=== PATIENT | male | born 1960 | race Caucasian/White ===

== ENCOUNTER 2020-04-05 18:07 | Emergency (ER) | payer OTHER ==
[~2020-04-05 18:07] MED LIST: AMLODIPINE BESY10 MG PO; ASPIRIN EC81 MG PO; ATORVASTATIN CA20 MG PO; BUPRENORPHIN-N1 EACH SL; CEPHALEXIN500 M1 PO; DOCUSATE SODIU100 MG PO; DOXYCYCLINE MO100 MG PO; FUROSEMIDE40 MG PO; GLUCOPHAGE1000 MG PO; HUMULIN R100 UNIT/1 INJ; HYDROXYZINE HCL25 MG PO; KEFLEX500 MG PO; LANTUS100 UNIT/1 SQ; LISINOPRIL-HCT1 EAC1 PO; MIRTAZAPINE45 MG PO; NORTRIPTYLINE H75 MG PO; NOVOLIN 70100 UNIT/1 SQ; OXCARBAZEPINE600 MG PO; PERCOCET 5-3251 EACH PO; POTASSIUM CHLO20 ME2 PO; REMERON45 M1 PO; TAMSULOSIN HCL0.4 MG PO; ZOFRAN 4 MG TAB4 MG PO
== END 2020-04-05 21:30 | disposition home or self-care (01) ==
LOC: ER1 18:07
DX: T85.638A Leakage of other specified internal prosthetic devices, implants and grafts, initial encounter (principal); I11.0 Hypertensive heart disease with heart failure; I50.9 Heart failure, unspecified; E11.9 Type 2 diabetes mellitus without complications; Y82.8 Other medical devices associated with adverse incidents; Z89.511 Acquired absence of right leg below knee
CPT/HCPCS: 99283

== ENCOUNTER 2020-04-07 22:57 | Emergency (ER) | payer OTHER | END 2020-04-08 01:49 | disposition home or self-care (01) | LOC: ER1 22:57 | DX: S80.811A Abrasion, right lower leg, initial encounter (principal); E11.9 Type 2 diabetes mellitus without complications; Z79.4 Long term (current) use of insulin; Z89.511 Acquired absence of right leg below knee; W19.XXXA Unspecified fall, initial encounter | CPT/HCPCS: 99282 ==

== ENCOUNTER → 2020-04-12 | Outpatient (CLI) | payer OTHER | LOC: WCC 13:00 | PROC: 0KBS0ZZ Excision of Right Lower Leg Muscle, Open Approach (ICD-10-PCS; principal; 2020-04-12) | DX: E11.622 Type 2 diabetes mellitus with other skin ulcer (principal); L97.813 Non-pressure chronic ulcer of other part of right lower leg with necrosis of muscle; E11.52 Type 2 diabetes mellitus with diabetic peripheral angiopathy with gangrene; I96 Gangrene, not elsewhere classified; I11.0 Hypertensive heart disease with heart failure; I50.22 Chronic systolic (congestive) heart failure; E11.610 Type 2 diabetes mellitus with diabetic neuropathic arthropathy; E11.40 Type 2 diabetes mellitus with diabetic neuropathy, unspecified; T81.31XD Disruption of external operation (surgical) wound, not elsewhere classified, subsequent encounter; Z79.4 Long term (current) use of insulin; Z79.899 Other long term (current) drug therapy; Z89.511 Acquired absence of right leg below knee; Y83.5 Amputation of limb(s) as the cause of abnormal reaction of the patient, or of later complication, without mention of misadventure at the time of the procedure | CPT/HCPCS: G0463 ==

== ENCOUNTER → 2020-04-19 | Outpatient (CLI) | payer OTHER | LOC: WCC 13:01 | PROC: 0KBW0ZZ Excision of Left Foot Muscle, Open Approach (ICD-10-PCS; principal; 2020-04-19) | PROC: 0KBS0ZZ Excision of Right Lower Leg Muscle, Open Approach (ICD-10-PCS; 2020-04-19) | DX: E11.621 Type 2 diabetes mellitus with foot ulcer (principal); L97.423 Non-pressure chronic ulcer of left heel and midfoot with necrosis of muscle; E11.622 Type 2 diabetes mellitus with other skin ulcer; L97.813 Non-pressure chronic ulcer of other part of right lower leg with necrosis of muscle; E11.52 Type 2 diabetes mellitus with diabetic peripheral angiopathy with gangrene; I96 Gangrene, not elsewhere classified; E11.610 Type 2 diabetes mellitus with diabetic neuropathic arthropathy; I11.0 Hypertensive heart disease with heart failure; I50.22 Chronic systolic (congestive) heart failure; E66.01 Morbid (severe) obesity due to excess calories; B18.2 Chronic viral hepatitis C; Z89.511 Acquired absence of right leg below knee; Z79.4 Long term (current) use of insulin; Z79.2 Long term (current) use of antibiotics; Z79.899 Other long term (current) drug therapy; Z68.33 Body mass index [BMI] 33.0-33.9, adult | CPT/HCPCS: 87070; 87077; 87186; 87205 ==

== ENCOUNTER → 2020-04-27 | Outpatient (CLI) | payer OTHER | LOC: WCC 11:00 | PROC: 0KBT0ZZ Excision of Left Lower Leg Muscle, Open Approach (ICD-10-PCS; principal; 2020-04-27) | PROC: 0KBS0ZZ Excision of Right Lower Leg Muscle, Open Approach (ICD-10-PCS; 2020-04-27) | DX: E11.621 Type 2 diabetes mellitus with foot ulcer (principal); L97.423 Non-pressure chronic ulcer of left heel and midfoot with necrosis of muscle; T87.81 Dehiscence of amputation stump; T87.53 Necrosis of amputation stump, right lower extremity; E11.52 Type 2 diabetes mellitus with diabetic peripheral angiopathy with gangrene; I96 Gangrene, not elsewhere classified; B18.2 Chronic viral hepatitis C; B96.1 Klebsiella pneumoniae [K. pneumoniae] as the cause of diseases classified elsewhere; B95.62 Methicillin resistant Staphylococcus aureus infection as the cause of diseases classified elsewhere; I11.0 Hypertensive heart disease with heart failure; I50.22 Chronic systolic (congestive) heart failure; E11.610 Type 2 diabetes mellitus with diabetic neuropathic arthropathy; E66.01 Morbid (severe) obesity due to excess calories; Z68.33 Body mass index [BMI] 33.0-33.9, adult; Z89.511 Acquired absence of right leg below knee; Z79.4 Long term (current) use of insulin; Z79.2 Long term (current) use of antibiotics; Z79.899 Other long term (current) drug therapy; Y83.5 Amputation of limb(s) as the cause of abnormal reaction of the patient, or of later complication, without mention of misadventure at the time of the procedure ==

== ENCOUNTER → 2020-05-03 | Outpatient (CLI) | payer OTHER | LOC: WCC 12:55 | DX: E11.610 Type 2 diabetes mellitus with diabetic neuropathic arthropathy (principal); L97.525 Non-pressure chronic ulcer of other part of left foot with muscle involvement without evidence of necrosis; I11.0 Hypertensive heart disease with heart failure; I50.22 Chronic systolic (congestive) heart failure; E66.01 Morbid (severe) obesity due to excess calories; B18.2 Chronic viral hepatitis C; B96.1 Klebsiella pneumoniae [K. pneumoniae] as the cause of diseases classified elsewhere; B95.62 Methicillin resistant Staphylococcus aureus infection as the cause of diseases classified elsewhere; Z68.33 Body mass index [BMI] 33.0-33.9, adult; Z79.4 Long term (current) use of insulin; Z79.899 Other long term (current) drug therapy; Z89.511 Acquired absence of right leg below knee ==

== ENCOUNTER → 2020-05-10 | Outpatient (CLI) | payer OTHER | LOC: WCC 13:00 | PROC: 0KBW0ZZ Excision of Left Foot Muscle, Open Approach (ICD-10-PCS; principal; 2020-05-10) | PROC: 0KBS0ZZ Excision of Right Lower Leg Muscle, Open Approach (ICD-10-PCS; 2020-05-10) | DX: T87.81 Dehiscence of amputation stump (principal); T87.53 Necrosis of amputation stump, right lower extremity; E11.621 Type 2 diabetes mellitus with foot ulcer; L97.423 Non-pressure chronic ulcer of left heel and midfoot with necrosis of muscle; E11.52 Type 2 diabetes mellitus with diabetic peripheral angiopathy with gangrene; I96 Gangrene, not elsewhere classified; I11.0 Hypertensive heart disease with heart failure; I50.22 Chronic systolic (congestive) heart failure; E11.610 Type 2 diabetes mellitus with diabetic neuropathic arthropathy; B95.62 Methicillin resistant Staphylococcus aureus infection as the cause of diseases classified elsewhere; B18.2 Chronic viral hepatitis C; K59.00 Constipation, unspecified; E66.01 Morbid (severe) obesity due to excess calories; Z68.33 Body mass index [BMI] 33.0-33.9, adult; Z79.4 Long term (current) use of insulin; Z79.2 Long term (current) use of antibiotics; Z79.899 Other long term (current) drug therapy; Z89.511 Acquired absence of right leg below knee; Y83.5 Amputation of limb(s) as the cause of abnormal reaction of the patient, or of later complication, without mention of misadventure at the time of the procedure ==

== ENCOUNTER → 2020-05-17 | Outpatient (CLI) | payer OTHER | LOC: EXRD 04-24 13:45 | DX: E11.621 Type 2 diabetes mellitus with foot ulcer (principal); L97.525 Non-pressure chronic ulcer of other part of left foot with muscle involvement without evidence of necrosis; I50.22 Chronic systolic (congestive) heart failure; E11.610 Type 2 diabetes mellitus with diabetic neuropathic arthropathy; E66.01 Morbid (severe) obesity due to excess calories; I10 Essential (primary) hypertension; B18.2 Chronic viral hepatitis C; B96.1 Klebsiella pneumoniae [K. pneumoniae] as the cause of diseases classified elsewhere; B95.62 Methicillin resistant Staphylococcus aureus infection as the cause of diseases classified elsewhere; Z89.511 Acquired absence of right leg below knee; Z79.4 Long term (current) use of insulin; R59.0 Localized enlarged lymph nodes | CPT/HCPCS: 93925 ==

== ENCOUNTER → 2020-05-17 | Outpatient (CLI) | payer OTHER | LOC: WCC 15:00 | PROC: 0KBW0ZZ Excision of Left Foot Muscle, Open Approach (ICD-10-PCS; principal; 2020-05-17) | PROC: 0KBS0ZZ Excision of Right Lower Leg Muscle, Open Approach (ICD-10-PCS; 2020-05-17) | DX: T81.31XA Disruption of external operation (surgical) wound, not elsewhere classified, initial encounter (principal); E11.621 Type 2 diabetes mellitus with foot ulcer; L97.423 Non-pressure chronic ulcer of left heel and midfoot with necrosis of muscle; E11.52 Type 2 diabetes mellitus with diabetic peripheral angiopathy with gangrene; I96 Gangrene, not elsewhere classified; I11.0 Hypertensive heart disease with heart failure; I50.22 Chronic systolic (congestive) heart failure; E11.610 Type 2 diabetes mellitus with diabetic neuropathic arthropathy; B18.2 Chronic viral hepatitis C; B96.1 Klebsiella pneumoniae [K. pneumoniae] as the cause of diseases classified elsewhere; B95.62 Methicillin resistant Staphylococcus aureus infection as the cause of diseases classified elsewhere; E66.01 Morbid (severe) obesity due to excess calories; Z68.33 Body mass index [BMI] 33.0-33.9, adult; Z79.4 Long term (current) use of insulin; Z79.82 Long term (current) use of aspirin; Z79.899 Other long term (current) drug therapy; Z89.511 Acquired absence of right leg below knee; Y83.8 Other surgical procedures as the cause of abnormal reaction of the patient, or of later complication, without mention of misadventure at the time of the procedure ==

== ENCOUNTER → 2020-05-31 | Outpatient (CLI) | payer OTHER | LOC: WCC 15:30 | PROC: 0JBN0ZZ Excision of Right Lower Leg Subcutaneous Tissue and Fascia, Open Approach (ICD-10-PCS; principal; 2020-05-31) | PROC: 0JBR0ZZ Excision of Left Foot Subcutaneous Tissue and Fascia, Open Approach (ICD-10-PCS; 2020-05-31) | DX: T81.31XA Disruption of external operation (surgical) wound, not elsewhere classified, initial encounter (principal); E11.621 Type 2 diabetes mellitus with foot ulcer; L97.423 Non-pressure chronic ulcer of left heel and midfoot with necrosis of muscle; E11.52 Type 2 diabetes mellitus with diabetic peripheral angiopathy with gangrene; I96 Gangrene, not elsewhere classified; I11.0 Hypertensive heart disease with heart failure; I50.22 Chronic systolic (congestive) heart failure; E11.610 Type 2 diabetes mellitus with diabetic neuropathic arthropathy; E66.01 Morbid (severe) obesity due to excess calories; B18.2 Chronic viral hepatitis C; B96.1 Klebsiella pneumoniae [K. pneumoniae] as the cause of diseases classified elsewhere; B95.62 Methicillin resistant Staphylococcus aureus infection as the cause of diseases classified elsewhere; Z79.2 Long term (current) use of antibiotics; Z79.4 Long term (current) use of insulin; Z79.899 Other long term (current) drug therapy; Z89.511 Acquired absence of right leg below knee; Z68.33 Body mass index [BMI] 33.0-33.9, adult; Y83.8 Other surgical procedures as the cause of abnormal reaction of the patient, or of later complication, without mention of misadventure at the time of the procedure ==

== ENCOUNTER → 2020-06-07 | Outpatient (CLI) | payer OTHER | LOC: WCC 14:48 | PROC: 0KBW0ZZ Excision of Left Foot Muscle, Open Approach (ICD-10-PCS; principal; 2020-06-07) | PROC: 0KBS0ZZ Excision of Right Lower Leg Muscle, Open Approach (ICD-10-PCS; 2020-06-07) | DX: E11.622 Type 2 diabetes mellitus with other skin ulcer (principal); L97.812 Non-pressure chronic ulcer of other part of right lower leg with fat layer exposed; E11.621 Type 2 diabetes mellitus with foot ulcer; L97.423 Non-pressure chronic ulcer of left heel and midfoot with necrosis of muscle; E11.52 Type 2 diabetes mellitus with diabetic peripheral angiopathy with gangrene; I96 Gangrene, not elsewhere classified; I11.0 Hypertensive heart disease with heart failure; I50.22 Chronic systolic (congestive) heart failure; E11.610 Type 2 diabetes mellitus with diabetic neuropathic arthropathy; B18.2 Chronic viral hepatitis C; B96.1 Klebsiella pneumoniae [K. pneumoniae] as the cause of diseases classified elsewhere; B95.62 Methicillin resistant Staphylococcus aureus infection as the cause of diseases classified elsewhere; E66.01 Morbid (severe) obesity due to excess calories; Z68.33 Body mass index [BMI] 33.0-33.9, adult; Z79.4 Long term (current) use of insulin; Z79.2 Long term (current) use of antibiotics; Z79.899 Other long term (current) drug therapy ==

== ENCOUNTER → 2020-06-14 | Outpatient (CLI) | payer OTHER | LOC: WCC 15:30 | PROC: 0KBS0ZZ Excision of Right Lower Leg Muscle, Open Approach (ICD-10-PCS; principal; 2020-06-14) | PROC: 0KBW0ZZ Excision of Left Foot Muscle, Open Approach (ICD-10-PCS; 2020-06-14) | DX: T81.31XA Disruption of external operation (surgical) wound, not elsewhere classified, initial encounter (principal); E11.621 Type 2 diabetes mellitus with foot ulcer; L97.423 Non-pressure chronic ulcer of left heel and midfoot with necrosis of muscle; E11.52 Type 2 diabetes mellitus with diabetic peripheral angiopathy with gangrene; I96 Gangrene, not elsewhere classified; B18.2 Chronic viral hepatitis C; B96.1 Klebsiella pneumoniae [K. pneumoniae] as the cause of diseases classified elsewhere; B95.62 Methicillin resistant Staphylococcus aureus infection as the cause of diseases classified elsewhere; I11.0 Hypertensive heart disease with heart failure; I50.22 Chronic systolic (congestive) heart failure; E11.610 Type 2 diabetes mellitus with diabetic neuropathic arthropathy; E66.01 Morbid (severe) obesity due to excess calories; Z68.33 Body mass index [BMI] 33.0-33.9, adult; Z79.4 Long term (current) use of insulin; Z79.2 Long term (current) use of antibiotics; Z79.899 Other long term (current) drug therapy; Z89.511 Acquired absence of right leg below knee; Y83.8 Other surgical procedures as the cause of abnormal reaction of the patient, or of later complication, without mention of misadventure at the time of the procedure ==

== ENCOUNTER → 2020-06-21 | Outpatient (CLI) | payer OTHER | LOC: WCC 12:11 | PROC: 0KBS0ZZ Excision of Right Lower Leg Muscle, Open Approach (ICD-10-PCS; principal; 2020-06-21) | PROC: 0KBW0ZZ Excision of Left Foot Muscle, Open Approach (ICD-10-PCS; 2020-06-21) | DX: T81.31XA Disruption of external operation (surgical) wound, not elsewhere classified, initial encounter (principal); E11.621 Type 2 diabetes mellitus with foot ulcer; L97.423 Non-pressure chronic ulcer of left heel and midfoot with necrosis of muscle; I96 Gangrene, not elsewhere classified; E11.52 Type 2 diabetes mellitus with diabetic peripheral angiopathy with gangrene; I11.0 Hypertensive heart disease with heart failure; I50.22 Chronic systolic (congestive) heart failure; E11.610 Type 2 diabetes mellitus with diabetic neuropathic arthropathy; B96.1 Klebsiella pneumoniae [K. pneumoniae] as the cause of diseases classified elsewhere; B95.62 Methicillin resistant Staphylococcus aureus infection as the cause of diseases classified elsewhere; E66.01 Morbid (severe) obesity due to excess calories; Z68.33 Body mass index [BMI] 33.0-33.9, adult; Z79.4 Long term (current) use of insulin; Z79.2 Long term (current) use of antibiotics; Z79.899 Other long term (current) drug therapy; Z89.511 Acquired absence of right leg below knee; Y83.8 Other surgical procedures as the cause of abnormal reaction of the patient, or of later complication, without mention of misadventure at the time of the procedure | CPT/HCPCS: 87070; 87077; 87186; 87205 ==

== ENCOUNTER → 2020-06-27 | Outpatient (CLI) | payer OTHER | LOC: WCC 09:30 | DX: E11.621 Type 2 diabetes mellitus with foot ulcer (principal); L97.425 Non-pressure chronic ulcer of left heel and midfoot with muscle involvement without evidence of necrosis; T87.89 Other complications of amputation stump; E11.610 Type 2 diabetes mellitus with diabetic neuropathic arthropathy; I11.0 Hypertensive heart disease with heart failure; I50.22 Chronic systolic (congestive) heart failure; B18.2 Chronic viral hepatitis C; B96.29 Other Escherichia coli [E. coli] as the cause of diseases classified elsewhere; E66.01 Morbid (severe) obesity due to excess calories; Z89.511 Acquired absence of right leg below knee; Z68.33 Body mass index [BMI] 33.0-33.9, adult; Z79.4 Long term (current) use of insulin; Z79.2 Long term (current) use of antibiotics; Z79.899 Other long term (current) drug therapy ==

== ENCOUNTER → 2020-07-05 | Outpatient (CLI) | payer OTHER | LOC: WCC 15:16 | DX: E11.40 Type 2 diabetes mellitus with diabetic neuropathy, unspecified (principal); L97.525 Non-pressure chronic ulcer of other part of left foot with muscle involvement without evidence of necrosis; E11.618 Type 2 diabetes mellitus with other diabetic arthropathy; I50.22 Chronic systolic (congestive) heart failure; Z79.4 Long term (current) use of insulin; E66.01 Morbid (severe) obesity due to excess calories; B18.2 Chronic viral hepatitis C; B96.29 Other Escherichia coli [E. coli] as the cause of diseases classified elsewhere; Z68.33 Body mass index [BMI] 33.0-33.9, adult ==

== ENCOUNTER → 2020-07-18 | Outpatient (CLI) | payer OTHER | LOC: WCC 15:00 | DX: E11.621 Type 2 diabetes mellitus with foot ulcer (principal); L97.422 Non-pressure chronic ulcer of left heel and midfoot with fat layer exposed; T81.89XA Other complications of procedures, not elsewhere classified, initial encounter; I11.0 Hypertensive heart disease with heart failure; I50.9 Heart failure, unspecified; E66.01 Morbid (severe) obesity due to excess calories; Z79.4 Long term (current) use of insulin; Z89.511 Acquired absence of right leg below knee ==

== ENCOUNTER → 2020-07-25 | Outpatient (CLI) | payer OTHER | LOC: WCC 14:59 | DX: E11.621 Type 2 diabetes mellitus with foot ulcer (principal); L97.425 Non-pressure chronic ulcer of left heel and midfoot with muscle involvement without evidence of necrosis; L97.525 Non-pressure chronic ulcer of other part of left foot with muscle involvement without evidence of necrosis; T87.81 Dehiscence of amputation stump; E11.610 Type 2 diabetes mellitus with diabetic neuropathic arthropathy; I11.0 Hypertensive heart disease with heart failure; I50.22 Chronic systolic (congestive) heart failure; E66.01 Morbid (severe) obesity due to excess calories; B18.2 Chronic viral hepatitis C; B96.29 Other Escherichia coli [E. coli] as the cause of diseases classified elsewhere; Z68.33 Body mass index [BMI] 33.0-33.9, adult; Z89.511 Acquired absence of right leg below knee; Z79.2 Long term (current) use of antibiotics; Z79.4 Long term (current) use of insulin; Z79.899 Other long term (current) drug therapy ==

== ENCOUNTER → 2020-08-01 | Outpatient (CLI) | payer OTHER | LOC: WCC 14:30 | DX: E11.610 Type 2 diabetes mellitus with diabetic neuropathic arthropathy (principal); L97.525 Non-pressure chronic ulcer of other part of left foot with muscle involvement without evidence of necrosis; I50.22 Chronic systolic (congestive) heart failure; E66.01 Morbid (severe) obesity due to excess calories; I10 Essential (primary) hypertension; B18.2 Chronic viral hepatitis C; B96.29 Other Escherichia coli [E. coli] as the cause of diseases classified elsewhere; Z79.4 Long term (current) use of insulin ==

== ENCOUNTER → 2020-08-08 | Outpatient (CLI) | payer OTHER | LOC: WCC 14:45 | DX: E11.621 Type 2 diabetes mellitus with foot ulcer (principal); L97.425 Non-pressure chronic ulcer of left heel and midfoot with muscle involvement without evidence of necrosis; L97.522 Non-pressure chronic ulcer of other part of left foot with fat layer exposed; T87.81 Dehiscence of amputation stump; I11.0 Hypertensive heart disease with heart failure; I50.22 Chronic systolic (congestive) heart failure; E11.610 Type 2 diabetes mellitus with diabetic neuropathic arthropathy; E11.51 Type 2 diabetes mellitus with diabetic peripheral angiopathy without gangrene; B18.2 Chronic viral hepatitis C; E66.01 Morbid (severe) obesity due to excess calories; B96.29 Other Escherichia coli [E. coli] as the cause of diseases classified elsewhere; Z68.33 Body mass index [BMI] 33.0-33.9, adult; Z89.511 Acquired absence of right leg below knee; Z79.4 Long term (current) use of insulin; Z79.899 Other long term (current) drug therapy ==

== ENCOUNTER → 2020-08-15 | Outpatient (CLI) | payer OTHER | LOC: WCC 14:45 | DX: E11.621 Type 2 diabetes mellitus with foot ulcer (principal); L97.422 Non-pressure chronic ulcer of left heel and midfoot with fat layer exposed; L97.522 Non-pressure chronic ulcer of other part of left foot with fat layer exposed; S81.801A Unspecified open wound, right lower leg, initial encounter; E11.51 Type 2 diabetes mellitus with diabetic peripheral angiopathy without gangrene; I11.0 Hypertensive heart disease with heart failure; I50.22 Chronic systolic (congestive) heart failure; E11.610 Type 2 diabetes mellitus with diabetic neuropathic arthropathy; E66.01 Morbid (severe) obesity due to excess calories; B18.2 Chronic viral hepatitis C; B96.29 Other Escherichia coli [E. coli] as the cause of diseases classified elsewhere; Z68.33 Body mass index [BMI] 33.0-33.9, adult; Z89.511 Acquired absence of right leg below knee; Z79.4 Long term (current) use of insulin; Z79.899 Other long term (current) drug therapy; W05.0XXA Fall from non-moving wheelchair, initial encounter | CPT/HCPCS: 87070; 87077; 87186; 87205 ==

== ENCOUNTER → 2020-08-23 | Outpatient (CLI) | payer OTHER ==
[~2020-08-23] VITALS: Ht 172.7 cm; Wt 99.8 kg
== END ==
LOC: OPSV 07:00
DX: L97.525 Non-pressure chronic ulcer of other part of left foot with muscle involvement without evidence of necrosis (principal); T87.43 Infection of amputation stump, right lower extremity; B95.62 Methicillin resistant Staphylococcus aureus infection as the cause of diseases classified elsewhere; B96.20 Unspecified Escherichia coli [E. coli] as the cause of diseases classified elsewhere; B95.1 Streptococcus, group B, as the cause of diseases classified elsewhere
CPT/HCPCS: 96365; 97597; 97598; J0875; J7060

== ENCOUNTER → 2020-08-31 | Outpatient (CLI) | payer OTHER | LOC: WCC 12:00 | DX: E11.621 Type 2 diabetes mellitus with foot ulcer (principal); L97.422 Non-pressure chronic ulcer of left heel and midfoot with fat layer exposed; L97.522 Non-pressure chronic ulcer of other part of left foot with fat layer exposed; S81.801A Unspecified open wound, right lower leg, initial encounter; I11.0 Hypertensive heart disease with heart failure; I50.22 Chronic systolic (congestive) heart failure; E11.610 Type 2 diabetes mellitus with diabetic neuropathic arthropathy; E66.01 Morbid (severe) obesity due to excess calories; B18.2 Chronic viral hepatitis C; B96.29 Other Escherichia coli [E. coli] as the cause of diseases classified elsewhere; Z68.33 Body mass index [BMI] 33.0-33.9, adult; Z89.511 Acquired absence of right leg below knee; Z79.4 Long term (current) use of insulin; Z79.2 Long term (current) use of antibiotics; Z79.899 Other long term (current) drug therapy; X58.XXXA Exposure to other specified factors, initial encounter ==

== ENCOUNTER → 2020-09-06 | Outpatient (CLI) | payer OTHER | LOC: WCC 14:15 | DX: E11.621 Type 2 diabetes mellitus with foot ulcer (principal); L97.425 Non-pressure chronic ulcer of left heel and midfoot with muscle involvement without evidence of necrosis; L97.521 Non-pressure chronic ulcer of other part of left foot limited to breakdown of skin; T87.81 Dehiscence of amputation stump; I11.0 Hypertensive heart disease with heart failure; I50.22 Chronic systolic (congestive) heart failure; E11.610 Type 2 diabetes mellitus with diabetic neuropathic arthropathy; E66.01 Morbid (severe) obesity due to excess calories; B18.2 Chronic viral hepatitis C; B96.29 Other Escherichia coli [E. coli] as the cause of diseases classified elsewhere; Z68.33 Body mass index [BMI] 33.0-33.9, adult; Z89.511 Acquired absence of right leg below knee; Z79.4 Long term (current) use of insulin; Z79.2 Long term (current) use of antibiotics; Z79.899 Other long term (current) drug therapy ==

== ENCOUNTER → 2020-09-13 | Outpatient (CLI) | payer OTHER ==
[~2020-09-13] MED LIST changes: +CEFTRIAXON1 GM/50 ML IV; +COLISTIMETHATE150 MG TOP; +GENTAMICIN SUL3.5 GM TOP; +HUMALOG100 UNIT/3 SC; +LANTUS SOL100 UNIT/1 SQ; +LIPITOR TAB 2020 MG PO; +REMERON 15 MG T15 MG PO
== END ==
LOC: WCC 14:00
PROC: 0KBW0ZZ Excision of Left Foot Muscle, Open Approach (ICD-10-PCS; principal; 2020-09-13)
PROC: 0JBN0ZZ Excision of Right Lower Leg Subcutaneous Tissue and Fascia, Open Approach (ICD-10-PCS; 2020-09-13)
DX: T87.81 Dehiscence of amputation stump (principal); T87.53 Necrosis of amputation stump, right lower extremity; E11.621 Type 2 diabetes mellitus with foot ulcer; L97.423 Non-pressure chronic ulcer of left heel and midfoot with necrosis of muscle; L97.522 Non-pressure chronic ulcer of other part of left foot with fat layer exposed; E11.52 Type 2 diabetes mellitus with diabetic peripheral angiopathy with gangrene; I96 Gangrene, not elsewhere classified; I11.0 Hypertensive heart disease with heart failure; I50.22 Chronic systolic (congestive) heart failure; E11.610 Type 2 diabetes mellitus with diabetic neuropathic arthropathy; B96.20 Unspecified Escherichia coli [E. coli] as the cause of diseases classified elsewhere; B18.2 Chronic viral hepatitis C; E66.01 Morbid (severe) obesity due to excess calories; Z68.33 Body mass index [BMI] 33.0-33.9, adult; Z79.4 Long term (current) use of insulin; Z89.511 Acquired absence of right leg below knee; Y83.5 Amputation of limb(s) as the cause of abnormal reaction of the patient, or of later complication, without mention of misadventure at the time of the procedure; Z79.899 Other long term (current) drug therapy

== ENCOUNTER 2020-09-21 21:55 | Emergency (ER) | payer OTHER ==
[~2020-09-21 21:55] MED LIST changes: -CEFTRIAXON1 GM/50 ML IV; -COLISTIMETHATE150 MG TOP; -GENTAMICIN SUL3.5 GM TOP; -HUMALOG100 UNIT/3 SC; -LANTUS SOL100 UNIT/1 SQ; -LIPITOR TAB 2020 MG PO; -REMERON 15 MG T15 MG PO
[2020-09-21 22:35] LABS: HEMOGLOBIN 17.9 gm/dl (14.0-17.5); RED BLOOD COUNT 5.65 M/UL (4.20-5.50)
[2020-09-21 23:03] LABS: BUN/CREATININE RATIO 34 (0-10)
[2020-11-27] MEDS ORDERED: COLISTIMETHATE150 MG TOP (12:54)
== END 2020-09-22 04:45 | disposition short-term general hospital (02) ==
LOC: ER1 21:55
PROVIDERS: Emergency Medicine
DX: I63.9 Cerebral infarction, unspecified (principal); R29.701 NIHSS score 1; E11.9 Type 2 diabetes mellitus without complications; Z20.822 Contact with and (suspected) exposure to COVID-19
CPT/HCPCS: 70450; 71045; 80053; 81001; 82009; 82962; 83605; 83735; 84100; 85025; 87040; 87086; 93005; 96372; 99285; U0002

== ENCOUNTER → 2020-10-11 | Outpatient (CLI) | payer OTHER ==
[~2020-10-11] MED LIST changes: +CEFTRIAXON1 GM/50 ML IV; +COLISTIMETHATE150 MG TOP; +GENTAMICIN SUL3.5 GM TOP; +HUMALOG100 UNIT/3 SC; +LANTUS SOL100 UNIT/1 SQ; +LIPITOR TAB 2020 MG PO; +REMERON 15 MG T15 MG PO
== END ==
LOC: WCC 09:36
PROC: 0JBR0ZZ Excision of Left Foot Subcutaneous Tissue and Fascia, Open Approach (ICD-10-PCS; principal; 2020-10-11)
DX: E11.621 Type 2 diabetes mellitus with foot ulcer (principal); L97.425 Non-pressure chronic ulcer of left heel and midfoot with muscle involvement without evidence of necrosis; L97.522 Non-pressure chronic ulcer of other part of left foot with fat layer exposed; E11.610 Type 2 diabetes mellitus with diabetic neuropathic arthropathy; T87.81 Dehiscence of amputation stump; T87.54 Necrosis of amputation stump, left lower extremity; I11.0 Hypertensive heart disease with heart failure; I50.22 Chronic systolic (congestive) heart failure; B18.2 Chronic viral hepatitis C; E66.01 Morbid (severe) obesity due to excess calories; Z68.33 Body mass index [BMI] 33.0-33.9, adult; Z79.4 Long term (current) use of insulin; Z79.899 Other long term (current) drug therapy; Y83.5 Amputation of limb(s) as the cause of abnormal reaction of the patient, or of later complication, without mention of misadventure at the time of the procedure; Z89.511 Acquired absence of right leg below knee
CPT/HCPCS: 97597

== ENCOUNTER → 2020-10-15 | Outpatient (CLI) | payer OTHER | LOC: WCC 13:45 | DX: E11.621 Type 2 diabetes mellitus with foot ulcer (principal); L97.425 Non-pressure chronic ulcer of left heel and midfoot with muscle involvement without evidence of necrosis; L97.522 Non-pressure chronic ulcer of other part of left foot with fat layer exposed; T87.81 Dehiscence of amputation stump; I11.0 Hypertensive heart disease with heart failure; I50.22 Chronic systolic (congestive) heart failure; E11.610 Type 2 diabetes mellitus with diabetic neuropathic arthropathy; E66.01 Morbid (severe) obesity due to excess calories; B18.2 Chronic viral hepatitis C; Z87.891 Personal history of nicotine dependence; Z89.511 Acquired absence of right leg below knee; Z68.33 Body mass index [BMI] 33.0-33.9, adult; Z79.4 Long term (current) use of insulin; Z79.899 Other long term (current) drug therapy | CPT/HCPCS: 97597 ==

== ENCOUNTER → 2020-10-22 | Outpatient (CLI) | payer OTHER | LOC: WCC 13:45 | DX: E11.621 Type 2 diabetes mellitus with foot ulcer (principal); L97.525 Non-pressure chronic ulcer of other part of left foot with muscle involvement without evidence of necrosis; T87.81 Dehiscence of amputation stump; I11.0 Hypertensive heart disease with heart failure; I50.22 Chronic systolic (congestive) heart failure; E11.610 Type 2 diabetes mellitus with diabetic neuropathic arthropathy; E11.51 Type 2 diabetes mellitus with diabetic peripheral angiopathy without gangrene; E11.40 Type 2 diabetes mellitus with diabetic neuropathy, unspecified; E66.01 Morbid (severe) obesity due to excess calories; B18.2 Chronic viral hepatitis C; Z89.511 Acquired absence of right leg below knee; Z79.4 Long term (current) use of insulin; Z79.899 Other long term (current) drug therapy ==

== ENCOUNTER → 2020-11-01 | Outpatient (CLI) | payer OTHER ==
[~2020-11-01] MED LIST changes: -CEFTRIAXON1 GM/50 ML IV; -COLISTIMETHATE150 MG TOP; -GENTAMICIN SUL3.5 GM TOP; -HUMALOG100 UNIT/3 SC; -LANTUS SOL100 UNIT/1 SQ; -LIPITOR TAB 2020 MG PO; -REMERON 15 MG T15 MG PO
== END ==
LOC: WCC 14:53
PROC: 0JBR0ZZ Excision of Left Foot Subcutaneous Tissue and Fascia, Open Approach (ICD-10-PCS; principal; 2020-11-01)
PROC: 0KBS0ZZ Excision of Right Lower Leg Muscle, Open Approach (ICD-10-PCS; principal; 2020-11-01)
DX: T87.81 Dehiscence of amputation stump (principal); T87.53 Necrosis of amputation stump, right lower extremity; E11.621 Type 2 diabetes mellitus with foot ulcer; L97.425 Non-pressure chronic ulcer of left heel and midfoot with muscle involvement without evidence of necrosis; E11.52 Type 2 diabetes mellitus with diabetic peripheral angiopathy with gangrene; I96 Gangrene, not elsewhere classified; I11.0 Hypertensive heart disease with heart failure; I50.22 Chronic systolic (congestive) heart failure; E11.610 Type 2 diabetes mellitus with diabetic neuropathic arthropathy; B18.2 Chronic viral hepatitis C; E66.01 Morbid (severe) obesity due to excess calories; Z68.33 Body mass index [BMI] 33.0-33.9, adult; Z79.4 Long term (current) use of insulin; Z79.2 Long term (current) use of antibiotics; Z79.899 Other long term (current) drug therapy; Z89.511 Acquired absence of right leg below knee; Y83.5 Amputation of limb(s) as the cause of abnormal reaction of the patient, or of later complication, without mention of misadventure at the time of the procedure
CPT/HCPCS: 87070; 87077; 87186; 87205

== ENCOUNTER → 2020-11-08 | Outpatient (CLI) | payer OTHER | LOC: WCC 15:15 | PROC: 0KBW0ZZ Excision of Left Foot Muscle, Open Approach (ICD-10-PCS; principal; 2020-11-08) | PROC: 0KBV0ZZ Excision of Right Foot Muscle, Open Approach (ICD-10-PCS; 2020-11-08) | DX: E11.621 Type 2 diabetes mellitus with foot ulcer (principal); L97.522 Non-pressure chronic ulcer of other part of left foot with fat layer exposed; L97.423 Non-pressure chronic ulcer of left heel and midfoot with necrosis of muscle; E11.51 Type 2 diabetes mellitus with diabetic peripheral angiopathy without gangrene; T87.81 Dehiscence of amputation stump; E11.40 Type 2 diabetes mellitus with diabetic neuropathy, unspecified; I11.0 Hypertensive heart disease with heart failure; I50.22 Chronic systolic (congestive) heart failure; E11.610 Type 2 diabetes mellitus with diabetic neuropathic arthropathy; E66.01 Morbid (severe) obesity due to excess calories; Z68.33 Body mass index [BMI] 33.0-33.9, adult; Z89.431 Acquired absence of right foot; Z79.2 Long term (current) use of antibiotics; Z79.4 Long term (current) use of insulin; Z79.899 Other long term (current) drug therapy; Y83.5 Amputation of limb(s) as the cause of abnormal reaction of the patient, or of later complication, without mention of misadventure at the time of the procedure ==

== ENCOUNTER → 2020-11-22 | Outpatient (CLI) | payer OTHER | LOC: WCC 15:00 | DX: E11.621 Type 2 diabetes mellitus with foot ulcer (principal); E11.622 Type 2 diabetes mellitus with other skin ulcer; L97.425 Non-pressure chronic ulcer of left heel and midfoot with muscle involvement without evidence of necrosis; L97.525 Non-pressure chronic ulcer of other part of left foot with muscle involvement without evidence of necrosis; L97.925 Non-pressure chronic ulcer of unspecified part of left lower leg with muscle involvement without evidence of necrosis; T87.81 Dehiscence of amputation stump; I11.0 Hypertensive heart disease with heart failure; I50.22 Chronic systolic (congestive) heart failure; E11.610 Type 2 diabetes mellitus with diabetic neuropathic arthropathy; E11.51 Type 2 diabetes mellitus with diabetic peripheral angiopathy without gangrene; B18.2 Chronic viral hepatitis C; Z89.511 Acquired absence of right leg below knee; Z79.4 Long term (current) use of insulin; Z79.2 Long term (current) use of antibiotics; Z79.899 Other long term (current) drug therapy ==

== ENCOUNTER → 2020-11-29 | Outpatient (CLI) | payer OTHER ==
[~2020-11-29] MED LIST changes: +COLISTIMETHATE150 MG TOP; +GENTAMICIN SUL3.5 GM TOP; +HUMALOG100 UNIT/3 SC; +LANTUS SOL100 UNIT/1 SQ; +LIPITOR TAB 2020 MG PO; +REMERON 15 MG T15 MG PO
== END ==
LOC: WCC 14:30
DX: E11.621 Type 2 diabetes mellitus with foot ulcer (principal); E11.622 Type 2 diabetes mellitus with other skin ulcer; L97.425 Non-pressure chronic ulcer of left heel and midfoot with muscle involvement without evidence of necrosis; L97.925 Non-pressure chronic ulcer of unspecified part of left lower leg with muscle involvement without evidence of necrosis; T87.81 Dehiscence of amputation stump; I11.0 Hypertensive heart disease with heart failure; I50.22 Chronic systolic (congestive) heart failure; E11.610 Type 2 diabetes mellitus with diabetic neuropathic arthropathy; E11.51 Type 2 diabetes mellitus with diabetic peripheral angiopathy without gangrene; E66.01 Morbid (severe) obesity due to excess calories; B18.2 Chronic viral hepatitis C; Z68.33 Body mass index [BMI] 33.0-33.9, adult; Z89.511 Acquired absence of right leg below knee; Z79.4 Long term (current) use of insulin; Z79.2 Long term (current) use of antibiotics; Z79.899 Other long term (current) drug therapy

== ENCOUNTER 2020-12-03 14:15 | Inpatient (IN) | payer OTHER ==
[~2020-12-03] VITALS: Ht 172.7 cm; Wt 90.7 kg
[~2020-12-03 14:15] MED LIST changes: -GENTAMICIN SUL3.5 GM TOP; -HUMALOG100 UNIT/3 SC; -LANTUS SOL100 UNIT/1 SQ; -LIPITOR TAB 2020 MG PO; -REMERON 15 MG T15 MG PO
[2020-12-03 16:05] LABS: HEMOGLOBIN 14.1 gm/dl (14.0-17.5); RED BLOOD COUNT 4.56 M/UL (4.20-5.50); WHITE BLOOD COUNT 7.8 K/UL (4.5-11.0)
[2020-12-03 16:32] LABS: BUN/CREATININE RATIO 24 (0-10)
[2020-12-04 07:47] LABS: WHITE BLOOD COUNT 6.5 K/UL (4.5-11.0)
[2020-12-04 07:49] LABS: HEMOGLOBIN 10.8 gm/dl (14.0-17.5); RED BLOOD COUNT 3.69 M/UL (4.20-5.50)
[2020-12-04 08:35] LABS: BUN/CREATININE RATIO 23 (0-10)
[2020-12-04] MEDS ORDERED: BUPRENORPHIN-N1 EACH SL (12:49)
[2020-12-04] MEDS ORDERED: REMERON 15 MG T15 MG PO (12:49)
[2020-12-04] MEDS ORDERED: GENTAMICIN SUL3.5 GM TOP (12:55)
[2020-12-04] MEDS ORDERED: ASPIRIN EC81 MG PO (12:57)
[2020-12-04] MEDS ORDERED: AMLODIPINE BESY10 MG PO (12:57)
[2020-12-04] MEDS ORDERED: LIPITOR TAB 2020 MG PO (12:58)
[2020-12-04] MEDS ORDERED: LANTUS SOL100 UNIT/1 SQ (12:59)
[2020-12-04] MEDS ORDERED: HUMALOG100 UNIT/3 SC (13:00)
--- NOTE | 2020-12-04 15:26 | NUR ---
0700, PER POLICY, CALL LIGHT IN REACH, FALL PRECAUTIONS, PT V/U
--- NOTE | 2020-12-04 17:04 | NUR ---
[id number], spoke w/dr gupta, ok to feed pt, he will be to see pt after clinic, he will give dressing change orders after he assess., pt has home med, no one answering phone on pts family number to bring meds in
[2020-12-05 05:14] LABS: HEMOGLOBIN 11.2 gm/dl (14.0-17.5); RED BLOOD COUNT 3.74 M/UL (4.20-5.50); WHITE BLOOD COUNT 5.8 K/UL (4.5-11.0)
[2020-12-05 05:35] LABS: BUN/CREATININE RATIO 20 (0-10)
--- NOTE | 2020-12-05 07:30 | NUR ---
PT SIGNED CONSENT FOR SURGERY.
--- NOTE | 2020-12-05 08:10 | NUR ---
PT TAKEN TO SURGERY VIA STRETCHER
[2020-12-06 09:55] LABS: HEMOGLOBIN 11.9 gm/dl (14.0-17.5); RED BLOOD COUNT 3.94 M/UL (4.20-5.50)
[2020-12-06 10:00] LABS: WHITE BLOOD COUNT 7.4 K/UL (4.5-11.0)
[2020-12-06 10:29] LABS: BUN/CREATININE RATIO 24 (0-10)
--- NOTE | 2020-12-06 16:11 | NUR ---
PT VOMITED 100CC BROWNISH/RED EMESIS, HE STATES HE HAS A BURNING IN HIS "GUT" MD WILL BE NOTIFIED.
[2020-12-07 09:49] LABS: HEMOGLOBIN 11.6 gm/dl (14.0-17.5); RED BLOOD COUNT 3.81 M/UL (4.20-5.50); WHITE BLOOD COUNT 6.7 K/UL (4.5-11.0)
[2020-12-07 10:11] LABS: BUN/CREATININE RATIO 21 (0-10)
[2020-12-08 10:34] LABS: HEMOGLOBIN 11.8 gm/dl (14.0-17.5); RED BLOOD COUNT 3.91 M/UL (4.20-5.50); WHITE BLOOD COUNT 5.8 K/UL (4.5-11.0)
[2020-12-08 11:01] LABS: BUN/CREATININE RATIO 21 (0-10)
[2020-12-09 05:30] LABS: HEMOGLOBIN 10.7 gm/dl (14.0-17.5); RED BLOOD COUNT 3.53 M/UL (4.20-5.50); WHITE BLOOD COUNT 5.3 K/UL (4.5-11.0)
[2020-12-09 05:58] LABS: BUN/CREATININE RATIO 25 (0-10)
--- NOTE | 2020-12-09 11:53 | NUR ---
PATIENT HAD BLOOD GLUCOSE OF 430. PROVIDER WAS CALLED AND ORDERED 20 UNITS HUMALOG PLUS 10 UNITS HUMALOG X3 TIMES A DAY WITH MEALS. WILL CONTINUE TO MONITOR.
[2020-12-10 06:30] LABS: HEMOGLOBIN 11.6 gm/dl (14.0-17.5); RED BLOOD COUNT 3.8 M/UL (4.20-5.50)
[2020-12-10 06:37] LABS: WHITE BLOOD COUNT 6.8 K/UL (4.5-11.0)
[2020-12-10 06:52] LABS: BUN/CREATININE RATIO 27 (0-10)
[2020-12-11 03:23] LABS: RED BLOOD COUNT 3.68 M/UL (4.20-5.50); WHITE BLOOD COUNT 5.5 K/UL (4.5-11.0)
[2020-12-11 03:48] LABS: BUN/CREATININE RATIO 24 (0-10)
--- NOTE | 2020-12-11 14:06 | NUR ---
DR MARCUM ASKED THAT THE NURSE CONTACT DR RICARDO REGARDING PO VERSUS IV ANTIBIOTICS. THE NURSE CONTACTED DR RICARDO AND GOT A CALL BACK TO ATTAIN PATIENTS DATE OF . THE NURSE WAS TOLD THAT DR. STRANGE OFFICE WOULD CONTACT HIM AND GIVE A CALL BACK. NO CALL BACK YET AT THIS TIME. A SECOND CALL AND MESSAGE WITH CALL BACK INFO WAS MADE TO TOUCH BASE ABOUT DR. MARCUM'S QUESTION OF WHAT TO SEND PATIENT HOME ON. WILL CONTINUE TO MONITOR.
[2020-12-11] MEDS ORDERED: CEFTRIAXON1 GM/50 ML IV (15:17)
== END 2020-12-11 18:48 | disposition home or self-care (01) | DRG 616 ==
LOC: ER1 14:15 → M/S 17:59 → CDU 17:59 → M/S 12-04 00:03
PROVIDERS: Internal Medicine; Physician Assistant; Podiatrist Foot & Ankle Surgery; Student in an Organized Health Care Education/Training Program; ADMIT Internal Medicine
PROC: 0Y6S0Z0 Detachment at Left 2nd Toe, Complete, Open Approach (ICD-10-PCS; principal; 2020-12-05 09:50)
DX: E11.628 Type 2 diabetes mellitus with other skin complications (principal); A48.0 Gas gangrene; E11.52 Type 2 diabetes mellitus with diabetic peripheral angiopathy with gangrene; L02.612 Cutaneous abscess of left foot; I50.32 Chronic diastolic (congestive) heart failure; Z20.822 Contact with and (suspected) exposure to COVID-19; B96.1 Klebsiella pneumoniae [K. pneumoniae] as the cause of diseases classified elsewhere; E11.42 Type 2 diabetes mellitus with diabetic polyneuropathy; F17.210 Nicotine dependence, cigarettes, uncomplicated; I11.0 Hypertensive heart disease with heart failure; E11.65 Type 2 diabetes mellitus with hyperglycemia; F15.10 Other stimulant abuse, uncomplicated; R11.2 Nausea with vomiting, unspecified; T50.995A Adverse effect of other drugs, medicaments and biological substances, initial encounter; E78.5 Hyperlipidemia, unspecified; F41.9 Anxiety disorder, unspecified; K59.00 Constipation, unspecified; F32.9 Major depressive disorder, single episode, unspecified; L03.032 Cellulitis of left toe; F19.10 Other psychoactive substance abuse, uncomplicated; Z89.511 Acquired absence of right leg below knee; Z79.82 Long term (current) use of aspirin; Z79.4 Long term (current) use of insulin; Z82.49 Family history of ischemic heart disease and other diseases of the circulatory system; Z83.3 Family history of diabetes mellitus
CPT/HCPCS: 36415; 71045; 73620; 74018; 80048; 80053; 80202; 82272; 82550; 82962; 83036; 83540; 83550; 83605; 83735; 84100; 85025; 85610; 85652; 86140; 87040; 87070; 87077; 87186; 87205; 93926; 96365; 99284; A6212; C9113; J0692; J1100; J1170; J1644; J2001; J2405; J2704; J2795; J3010; J3370; J7030; J7070; J7120; Q4133; U0002

== ENCOUNTER → 2020-12-12 | Outpatient (CLI) | payer OTHER ==
[~2020-12-12] MED LIST changes: +CEFTRIAXON1 GM/50 ML IV; +GENTAMICIN SUL3.5 GM TOP; +HUMALOG100 UNIT/3 SC; +LANTUS SOL100 UNIT/1 SQ; +LIPITOR TAB 2020 MG PO; +REMERON 15 MG T15 MG PO
== END ==
LOC: OPSV 13:35
DX: S91.302A Unspecified open wound, left foot, initial encounter (principal); B96.1 Klebsiella pneumoniae [K. pneumoniae] as the cause of diseases classified elsewhere
CPT/HCPCS: 96372; J0696

== ENCOUNTER → 2020-12-13 | Outpatient (CLI) | payer OTHER ==
[~2020-12-13] VITALS: Ht 175.3 cm; Wt 63.5 kg
== END ==
LOC: OPSV 14:00
DX: T81.49XA Infection following a procedure, other surgical site, initial encounter (principal); B96.1 Klebsiella pneumoniae [K. pneumoniae] as the cause of diseases classified elsewhere
CPT/HCPCS: 96372; J0696

== ENCOUNTER → 2020-12-14 | Outpatient (CLI) | payer OTHER ==
[~2020-12-14] VITALS: Ht 175.3 cm; Wt 86.2 kg
== END ==
LOC: OPSV 14:00
DX: S90.922A Unspecified superficial injury of left foot, initial encounter (principal); B96.1 Klebsiella pneumoniae [K. pneumoniae] as the cause of diseases classified elsewhere
CPT/HCPCS: 96372; J0696

== ENCOUNTER → 2020-12-15 | Outpatient (CLI) | payer OTHER | LOC: OPSV 07:15 | DX: T14.8XXA Other injury of unspecified body region, initial encounter (principal); B96.1 Klebsiella pneumoniae [K. pneumoniae] as the cause of diseases classified elsewhere | CPT/HCPCS: 96372; J0696 ==

== ENCOUNTER → 2020-12-16 | Outpatient (CLI) | payer OTHER ==
[~2020-12-16] VITALS: Ht 175.3 cm; Wt 86.2 kg
== END ==
LOC: OPSV 07:22
DX: S91.302A Unspecified open wound, left foot, initial encounter (principal); B96.1 Klebsiella pneumoniae [K. pneumoniae] as the cause of diseases classified elsewhere
CPT/HCPCS: 96372; J0696

== ENCOUNTER → 2020-12-17 | Outpatient (CLI) | payer OTHER ==
[~2020-12-17] VITALS: Ht 175.3 cm; Wt 63.5 kg
== END ==
LOC: OPSV 14:00
DX: S91.105A Unspecified open wound of left lesser toe(s) without damage to nail, initial encounter (principal)
CPT/HCPCS: 96372

== ENCOUNTER → 2020-12-18 | Outpatient (CLI) | payer OTHER ==
[~2020-12-18] VITALS: Ht 175.3 cm; Wt 63.5 kg
== END ==
LOC: OPSV 14:00
DX: Z47.81 Encounter for orthopedic aftercare following surgical amputation (principal)
CPT/HCPCS: 96372; J0696

== ENCOUNTER → 2020-12-20 | Outpatient (CLI) | payer OTHER | LOC: OPSV 14:00 | DX: S91.302A Unspecified open wound, left foot, initial encounter (principal); B96.1 Klebsiella pneumoniae [K. pneumoniae] as the cause of diseases classified elsewhere | CPT/HCPCS: 96372; J0696 ==

== ENCOUNTER → 2020-12-21 | Outpatient (CLI) | payer OTHER ==
[~2020-12-21] VITALS: Ht 175.3 cm; Wt 86.2 kg
== END ==
LOC: OPSV 14:00
DX: T14.8XXA Other injury of unspecified body region, initial encounter (principal); B96.1 Klebsiella pneumoniae [K. pneumoniae] as the cause of diseases classified elsewhere
CPT/HCPCS: 96372

== ENCOUNTER → 2020-12-22 | Outpatient (CLI) | payer OTHER | LOC: OPSV 07:28 | DX: T87.44 Infection of amputation stump, left lower extremity (principal); B96.1 Klebsiella pneumoniae [K. pneumoniae] as the cause of diseases classified elsewhere | CPT/HCPCS: 96372; J0696 ==

== ENCOUNTER → 2020-12-23 | Outpatient (CLI) | payer OTHER | LOC: OPSV 07:30 | DX: S91.302A Unspecified open wound, left foot, initial encounter (principal); B96.1 Klebsiella pneumoniae [K. pneumoniae] as the cause of diseases classified elsewhere | CPT/HCPCS: 96372; J0696 ==

== ENCOUNTER → 2020-12-24 | Outpatient (CLI) | payer OTHER | LOC: OPSV 14:00 | DX: T14.8XXA Other injury of unspecified body region, initial encounter (principal); B96.1 Klebsiella pneumoniae [K. pneumoniae] as the cause of diseases classified elsewhere | CPT/HCPCS: 96372; J0696 ==

== ENCOUNTER → 2020-12-25 | Outpatient (CLI) | payer OTHER ==
[~2020-12-25] VITALS: Ht 175.3 cm; Wt 63.5 kg
== END ==
LOC: OPSV 12:56
DX: S91.302A Unspecified open wound, left foot, initial encounter (principal); B96.1 Klebsiella pneumoniae [K. pneumoniae] as the cause of diseases classified elsewhere
CPT/HCPCS: 96372; J0696

== ENCOUNTER → 2020-12-26 | Outpatient (CLI) | payer OTHER ==
[~2020-12-26] VITALS: Ht 175.3 cm; Wt 63.5 kg
== END ==
LOC: OPSV 14:00
DX: S91.302A Unspecified open wound, left foot, initial encounter (principal); B96.1 Klebsiella pneumoniae [K. pneumoniae] as the cause of diseases classified elsewhere
CPT/HCPCS: 96372; J0696

== ENCOUNTER → 2020-12-27 | Outpatient (CLI) | payer OTHER ==
[~2020-12-27] VITALS: Ht 175.3 cm; Wt 63.5 kg
== END ==
LOC: OPSV 14:00
DX: T14.8XXA Other injury of unspecified body region, initial encounter (principal); B96.1 Klebsiella pneumoniae [K. pneumoniae] as the cause of diseases classified elsewhere
CPT/HCPCS: 96372; J0696

== ENCOUNTER → 2020-12-28 | Outpatient (CLI) | payer OTHER ==
[~2020-12-28] VITALS: Ht 175.3 cm; Wt 86.2 kg
== END ==
LOC: OPSV 14:00
DX: S90.921A Unspecified superficial injury of right foot, initial encounter (principal); B96.1 Klebsiella pneumoniae [K. pneumoniae] as the cause of diseases classified elsewhere
CPT/HCPCS: 96372; J0696

== ENCOUNTER → 2020-12-29 | Outpatient (CLI) | payer OTHER | LOC: OPSV 07:30 | DX: T14.8XXA Other injury of unspecified body region, initial encounter (principal); B96.1 Klebsiella pneumoniae [K. pneumoniae] as the cause of diseases classified elsewhere; X58.XXXA Exposure to other specified factors, initial encounter; Y93.9 Activity, unspecified; Y92.9 Unspecified place or not applicable; Y99.9 Unspecified external cause status | CPT/HCPCS: 96372; J0696 ==

== ENCOUNTER → 2020-12-30 | Outpatient (CLI) | payer OTHER ==
[~2020-12-30] VITALS: Ht 175.3 cm; Wt 63.5 kg
== END ==
LOC: OPSV 07:22
DX: T14.8XXA Other injury of unspecified body region, initial encounter (principal); B96.1 Klebsiella pneumoniae [K. pneumoniae] as the cause of diseases classified elsewhere; X58.XXXA Exposure to other specified factors, initial encounter; Y93.9 Activity, unspecified; Y92.9 Unspecified place or not applicable; Y99.9 Unspecified external cause status
CPT/HCPCS: 96372; J0696

== ENCOUNTER → 2020-12-31 | Outpatient (CLI) | payer OTHER | LOC: OPSV 14:00 | DX: T14.8XXA Other injury of unspecified body region, initial encounter (principal); B96.1 Klebsiella pneumoniae [K. pneumoniae] as the cause of diseases classified elsewhere; X58.XXXA Exposure to other specified factors, initial encounter; Y93.9 Activity, unspecified; Y92.9 Unspecified place or not applicable; Y99.9 Unspecified external cause status | CPT/HCPCS: 96372; J0696 ==

== ENCOUNTER → 2021-01-01 | Outpatient (CLI) | payer OTHER ==
[~2021-01-01] VITALS: Ht 175.3 cm; Wt 63.5 kg
== END ==
LOC: OPSV 14:00
DX: T14.8XXA Other injury of unspecified body region, initial encounter (principal); B96.1 Klebsiella pneumoniae [K. pneumoniae] as the cause of diseases classified elsewhere; X58.XXXA Exposure to other specified factors, initial encounter; Y93.9 Activity, unspecified; Y92.9 Unspecified place or not applicable; Y99.9 Unspecified external cause status
CPT/HCPCS: 96372; J0696

== ENCOUNTER → 2021-01-02 | Outpatient (CLI) | payer OTHER ==
[~2021-01-02] VITALS: Ht 175.3 cm; Wt 63.5 kg
== END ==
LOC: OPSV 14:00
DX: T81.49XA Infection following a procedure, other surgical site, initial encounter (principal); B96.1 Klebsiella pneumoniae [K. pneumoniae] as the cause of diseases classified elsewhere
CPT/HCPCS: 96372

== ENCOUNTER → 2021-01-03 | Outpatient (CLI) | payer OTHER ==
[~2021-01-03] VITALS: Ht 175.3 cm; Wt 86.2 kg
== END ==
LOC: OPSV 10:00
DX: T14.8XXA Other injury of unspecified body region, initial encounter (principal); B96.1 Klebsiella pneumoniae [K. pneumoniae] as the cause of diseases classified elsewhere
CPT/HCPCS: 96372

== ENCOUNTER → 2021-01-04 | Outpatient (CLI) | payer OTHER ==
[~2021-01-04] VITALS: Ht 175.3 cm; Wt 86.2 kg
== END ==
LOC: OPSV 14:00
DX: T14.8XXA Other injury of unspecified body region, initial encounter (principal); B96.1 Klebsiella pneumoniae [K. pneumoniae] as the cause of diseases classified elsewhere
CPT/HCPCS: 96372; J0696

== ENCOUNTER → 2021-01-05 | Outpatient (CLI) | payer OTHER | LOC: OPSV 07:30 | DX: S91.302A Unspecified open wound, left foot, initial encounter (principal); B96.1 Klebsiella pneumoniae [K. pneumoniae] as the cause of diseases classified elsewhere | CPT/HCPCS: 96372; J0696 ==

== ENCOUNTER → 2021-01-06 | Outpatient (CLI) | payer OTHER | LOC: OPSV 07:30 | DX: S91.302A Unspecified open wound, left foot, initial encounter (principal); B96.1 Klebsiella pneumoniae [K. pneumoniae] as the cause of diseases classified elsewhere | CPT/HCPCS: 96372; J0696 ==

== ENCOUNTER → 2021-01-07 | Outpatient (CLI) | payer OTHER | LOC: OPSV 13:59 | DX: T14.8XXA Other injury of unspecified body region, initial encounter (principal); B96.1 Klebsiella pneumoniae [K. pneumoniae] as the cause of diseases classified elsewhere | CPT/HCPCS: 96372; J0696 ==

== ENCOUNTER → 2021-01-08 | Outpatient (CLI) | payer OTHER | LOC: OPSV 14:00 | DX: S91.302A Unspecified open wound, left foot, initial encounter (principal); B96.1 Klebsiella pneumoniae [K. pneumoniae] as the cause of diseases classified elsewhere | CPT/HCPCS: 96372; J0696 ==

== ENCOUNTER → 2021-01-09 | Outpatient (CLI) | payer OTHER | LOC: WCC 13:23 | DX: T81.49XA Infection following a procedure, other surgical site, initial encounter (principal); E11.69 Type 2 diabetes mellitus with other specified complication; M86.9 Osteomyelitis, unspecified; E11.621 Type 2 diabetes mellitus with foot ulcer; E11.610 Type 2 diabetes mellitus with diabetic neuropathic arthropathy; L97.523 Non-pressure chronic ulcer of other part of left foot with necrosis of muscle; I11.0 Hypertensive heart disease with heart failure; I50.22 Chronic systolic (congestive) heart failure; B18.2 Chronic viral hepatitis C; E66.01 Morbid (severe) obesity due to excess calories; Z89.511 Acquired absence of right leg below knee; Z79.4 Long term (current) use of insulin ==

== ENCOUNTER → 2021-01-09 | Outpatient (CLI) | payer OTHER | LOC: OPSV 13:44 | DX: S90.921D Unspecified superficial injury of right foot, subsequent encounter (principal); B96.1 Klebsiella pneumoniae [K. pneumoniae] as the cause of diseases classified elsewhere | CPT/HCPCS: 96372; J0696 ==

== ENCOUNTER → 2021-01-10 | Outpatient (CLI) | payer OTHER | LOC: KOH-I 09:00 | DX: M86.8X7 Other osteomyelitis, ankle and foot (principal) | CPT/HCPCS: 73718 ==

== ENCOUNTER → 2021-01-10 | Outpatient (CLI) | payer OTHER | LOC: OPSV 14:00 | DX: T81.49XA Infection following a procedure, other surgical site, initial encounter (principal); T14.8XXA Other injury of unspecified body region, initial encounter; M86.9 Osteomyelitis, unspecified; B96.1 Klebsiella pneumoniae [K. pneumoniae] as the cause of diseases classified elsewhere | CPT/HCPCS: 87070; 87077; 87186; 87205; 96372 ==

== ENCOUNTER → 2021-01-11 | Outpatient (CLI) | payer OTHER | LOC: OPSV 14:00 | DX: S91.302A Unspecified open wound, left foot, initial encounter (principal); B96.1 Klebsiella pneumoniae [K. pneumoniae] as the cause of diseases classified elsewhere | CPT/HCPCS: 96372; J0696 ==

== ENCOUNTER → 2021-01-12 | Outpatient (CLI) | payer OTHER ==
[~2021-01-12] VITALS: Ht 175.3 cm; Wt 86.2 kg
== END ==
LOC: OPSV 07:05
DX: S90.922A Unspecified superficial injury of left foot, initial encounter (principal); B96.1 Klebsiella pneumoniae [K. pneumoniae] as the cause of diseases classified elsewhere
CPT/HCPCS: 96372; J0696

== ENCOUNTER → 2021-01-13 | Outpatient (CLI) | payer OTHER | LOC: OPSV 07:16 | DX: S90.922D Unspecified superficial injury of left foot, subsequent encounter (principal); B96.1 Klebsiella pneumoniae [K. pneumoniae] as the cause of diseases classified elsewhere | CPT/HCPCS: 96372; J0696 ==

== ENCOUNTER → 2021-01-14 | Outpatient (CLI) | payer OTHER | LOC: OPSV 13:00 | DX: S91.302A Unspecified open wound, left foot, initial encounter (principal); B96.1 Klebsiella pneumoniae [K. pneumoniae] as the cause of diseases classified elsewhere | CPT/HCPCS: 96372; J0696 ==

== ENCOUNTER → 2021-01-15 | Outpatient (CLI) | payer OTHER ==
[~2021-01-15] VITALS: Ht 175.3 cm; Wt 63.5 kg
[~2021-01-15] MED LIST changes: +FLOMAX 0.4 MG0.4 MG PO; +METFORMIN HCL1000 MG PO; +NEURONTIN600 MG PO; +PROTONIX40 MG PO
== END ==
LOC: OPSV 13:00
DX: S91.302A Unspecified open wound, left foot, initial encounter (principal); B96.1 Klebsiella pneumoniae [K. pneumoniae] as the cause of diseases classified elsewhere
CPT/HCPCS: 96372; J0696

== ENCOUNTER 2021-01-16 11:29 | Inpatient (IN) | payer OTHER ==
[~2021-01-16] VITALS: Ht 175.3 cm; Wt 63.5 kg
[~2021-01-16 11:29] MED LIST changes: -FLOMAX 0.4 MG0.4 MG PO; -METFORMIN HCL1000 MG PO; -NEURONTIN600 MG PO; -PROTONIX40 MG PO
[2021-01-16 14:09] LABS: HEMOGLOBIN 11.7 gm/dl (14.0-17.5); RED BLOOD COUNT 3.96 M/UL (4.20-5.50); WHITE BLOOD COUNT 5.1 K/UL (4.5-11.0)
[2021-01-16 14:32] LABS: BUN/CREATININE RATIO 16 (0-10)
[2021-01-16] MEDS ORDERED: FLOMAX 0.4 MG0.4 MG PO (21:01)
[2021-01-16] MEDS ORDERED: NEURONTIN600 MG PO (21:01)
[2021-01-16] MEDS ORDERED: PROTONIX40 MG PO (21:02)
[2021-01-16] MEDS ORDERED: METFORMIN HCL1000 MG PO (21:02)
[2021-01-17 06:11] LABS: HEMOGLOBIN 10.5 gm/dl (14.0-17.5); RED BLOOD COUNT 3.59 M/UL (4.20-5.50); WHITE BLOOD COUNT 4.4 K/UL (4.5-11.0)
[2021-01-18 08:44] LABS: BUN/CREATININE RATIO 16 (0-10)
--- NOTE | 2021-01-18 20:29 | NUR ---
PT LEFT THE FLOOR AT 1933 BY BED FOR SURGERY.
[2021-01-19 07:17] LABS: HEMOGLOBIN 12.4 gm/dl (14.0-17.5)
[2021-01-19 07:19] LABS: RED BLOOD COUNT 4.2 M/UL (4.20-5.50); WHITE BLOOD COUNT 6.7 K/UL (4.5-11.0)
[2021-01-19 07:33] LABS: BUN/CREATININE RATIO 17 (0-10)
[2021-01-21 08:14] LABS: HEMOGLOBIN 12.1 gm/dl (14.0-17.5); RED BLOOD COUNT 4.15 M/UL (4.20-5.50)
[2021-01-21 08:15] LABS: WHITE BLOOD COUNT 4.5 K/UL (4.5-11.0)
[2021-01-21 08:36] LABS: BUN/CREATININE RATIO 17 (0-10)
[2021-01-22 07:11] LABS: HEMOGLOBIN 10.9 gm/dl (14.0-17.5); RED BLOOD COUNT 3.75 M/UL (4.20-5.50); WHITE BLOOD COUNT 3.9 K/UL (4.5-11.0)
[2021-01-22 07:26] LABS: BUN/CREATININE RATIO 15 (0-10)
--- NOTE | 2021-01-22 10:14 | NUR ---
attempted to contact dr. gupta in regards to remove patient's hemovac to left foot per dr. ling. rn left call back number on voicemail.
--- NOTE | 2021-01-22 10:29 | NUR ---
PHONE CALL RETURNED BY DR. RICARDO. HE ORDERED RN TO KEEP HEMOVAC IN PLACE FOR ANOTHER DAY IT IS STILL PRODUCING UP TO 10 ML OF BLOODY DRAINAGE AND HE WILL REASSESS TOMORROW. RN NOTIFIED DR. JACKSON OF MD ORDER. RN REAPPLIED DRESSING PER ORDER TO LEFT FOOT.
--- NOTE | 2021-01-22 21:50 | NUR ---
PT WENT OUT SIDE. UPON RETURN DRESSING TO LEFT FOOT FALLING OFF AND HEMOVAC DRAIN HAD BEEN PULLED OUT. ATTEMPTED TO CALL DR RICARDO BUT UNABLE TO REACH HIM. NOTIFIED DR HOLCOMB. RECIEVED NO NEW ORDERS. PT RESTING QUIETLY FREE OF DISTRESS, NEW DRESSING APPLIED TO LEFT FOOT. NO DRAINAGE NOTED AT THIS TIME. WILL CONTINUE TO MONITOR.
[2021-01-23 06:35] LABS: RED BLOOD COUNT 3.8 M/UL (4.20-5.50); WHITE BLOOD COUNT 4.4 K/UL (4.5-11.0)
[2021-01-23 07:06] LABS: BUN/CREATININE RATIO 19 (0-10)
[2021-01-23] MEDS ORDERED: INVANZ 1 GM VIAL1 GM IM (15:36)
[2021-01-23] MEDS ORDERED: COZAAR 50MG TAB50 MG PO (15:36)
[2021-01-23] MEDS ORDERED: METOPROLOL SUCC50 MG PO (15:36)
[2021-01-23] MEDS ORDERED: ZYVOX600 MG PO (15:36)
== END 2021-01-23 18:17 | disposition home or self-care (01) | DRG 617 ==
LOC: ER1 11:29 → CDU 17:19 → MED SURG 4 17:19
PROVIDERS: Internal Medicine Infectious Disease; Nurse Practitioner; Physician Assistant; Podiatrist Foot & Ankle Surgery; ADMIT Internal Medicine
PROC: 0Y6N0ZC Detachment at Left Foot, Partial 3rd Ray, Open Approach (ICD-10-PCS; 2021-01-18)
PROC: 3E0V329 Introduction of Other Anti-infective into Bones, Percutaneous Approach (ICD-10-PCS; 2021-01-18)
PROC: 0Y6U0Z0 Detachment at Left 3rd Toe, Complete, Open Approach (ICD-10-PCS; principal; 2021-01-18 15:00)
PROC: 0Y6N0Z5 Detachment at Left Foot, Complete 2nd Ray, Open Approach (ICD-10-PCS; 2021-01-18 15:00)
DX: E11.69 Type 2 diabetes mellitus with other specified complication (principal); M86.672 Other chronic osteomyelitis, left ankle and foot; I50.32 Chronic diastolic (congestive) heart failure; I13.0 Hypertensive heart and chronic kidney disease with heart failure and stage 1 through stage 4 chronic kidney disease, or unspecified chronic kidney disease; L03.116 Cellulitis of left lower limb; Z20.822 Contact with and (suspected) exposure to COVID-19; N17.9 Acute kidney failure, unspecified; E11.43 Type 2 diabetes mellitus with diabetic autonomic (poly)neuropathy; E11.22 Type 2 diabetes mellitus with diabetic chronic kidney disease; B95.62 Methicillin resistant Staphylococcus aureus infection as the cause of diseases classified elsewhere; B96.20 Unspecified Escherichia coli [E. coli] as the cause of diseases classified elsewhere; F32.A Depression, unspecified; E78.5 Hyperlipidemia, unspecified; D63.1 Anemia in chronic kidney disease; N18.30 Chronic kidney disease, stage 3 unspecified; F41.9 Anxiety disorder, unspecified; F19.10 Other psychoactive substance abuse, uncomplicated; Z79.4 Long term (current) use of insulin; Z89.511 Acquired absence of right leg below knee; Z83.3 Family history of diabetes mellitus; Z89.422 Acquired absence of other left toe(s); Z79.01 Long term (current) use of anticoagulants; Z79.82 Long term (current) use of aspirin
CPT/HCPCS: 36415; 73630; 80048; 80053; 80202; 82962; 83605; 83735; 85025; 85610; 86140; 87040; 87070; 87077; 87186; 87205; 93005; 96365; 96375; 99284; C1713; J0360; J0696; J1100; J1335; J1650; J2001; J2020; J2250; J2270; J2405; J2704; J3010; J3260; J3370; J7030; J7050; J7120; U0002

== ENCOUNTER → 2021-01-24 | Outpatient (CLI) | payer OTHER ==
[~2021-01-24] MED LIST changes: +COZAAR 50MG TAB50 MG PO; +FLOMAX 0.4 MG0.4 MG PO; +INVANZ 1 GM VIAL1 GM IM; +METFORMIN HCL1000 MG PO; +METOPROLOL SUCC50 MG PO; +NEURONTIN600 MG PO; +PROTONIX40 MG PO; +ZYVOX600 MG PO
== END ==
LOC: OPSV 11:33
DX: S91.302A Unspecified open wound, left foot, initial encounter (principal); B96.1 Klebsiella pneumoniae [K. pneumoniae] as the cause of diseases classified elsewhere
CPT/HCPCS: 96372; J1335

== ENCOUNTER → 2021-01-25 | Outpatient (CLI) | payer OTHER | LOC: OPSV 13:15 | DX: L03.90 Cellulitis, unspecified (principal); B96.20 Unspecified Escherichia coli [E. coli] as the cause of diseases classified elsewhere | CPT/HCPCS: 96372; J1335 ==

== ENCOUNTER → 2021-01-26 | Outpatient (CLI) | payer OTHER ==
[~2021-01-26] VITALS: Ht 175.3 cm; Wt 86.2 kg
== END ==
LOC: OPSV 07:18
DX: L03.90 Cellulitis, unspecified (principal); B96.20 Unspecified Escherichia coli [E. coli] as the cause of diseases classified elsewhere
CPT/HCPCS: 96372; J1335

== ENCOUNTER → 2021-01-27 | Outpatient (CLI) | payer OTHER ==
[~2021-01-27] VITALS: Ht 175.3 cm; Wt 86.2 kg
== END ==
LOC: OPSV 07:00
DX: L03.90 Cellulitis, unspecified (principal); B96.20 Unspecified Escherichia coli [E. coli] as the cause of diseases classified elsewhere
CPT/HCPCS: 96372; J1335

== ENCOUNTER → 2021-01-28 | Outpatient (CLI) | payer OTHER ==
[2021-01-28 15:56] LABS: HEMOGLOBIN 12.1 gm/dl (14.0-17.5); RED BLOOD COUNT 4.06 M/UL (4.20-5.50); WHITE BLOOD COUNT 4.8 K/UL (4.5-11.0)
[2021-01-28 16:43] LABS: BUN/CREATININE RATIO 11 (0-10)
== END ==
LOC: OPSV 14:00
PROVIDERS: Internal Medicine Infectious Disease
DX: M86.9 Osteomyelitis, unspecified (principal)
CPT/HCPCS: 36415; 80048; 85025; 86140; 96372; J1335

== ENCOUNTER → 2021-01-29 | Outpatient (CLI) | payer OTHER ==
[~2021-01-29] VITALS: Ht 175.3 cm; Wt 63.5 kg
== END ==
LOC: OPSV 14:00
DX: L03.90 Cellulitis, unspecified (principal); B96.20 Unspecified Escherichia coli [E. coli] as the cause of diseases classified elsewhere
CPT/HCPCS: 96372; J1335

== ENCOUNTER → 2021-01-30 | Outpatient (CLI) | payer OTHER ==
[~2021-01-30] VITALS: Ht 175.3 cm; Wt 86.2 kg
== END ==
LOC: OPSV 14:00
DX: L03.90 Cellulitis, unspecified (principal); B96.20 Unspecified Escherichia coli [E. coli] as the cause of diseases classified elsewhere
CPT/HCPCS: 96372; J1335

== ENCOUNTER → 2021-01-31 | Outpatient (CLI) | payer OTHER | LOC: WCC 08:02 | DX: E11.621 Type 2 diabetes mellitus with foot ulcer (principal); L97.425 Non-pressure chronic ulcer of left heel and midfoot with muscle involvement without evidence of necrosis; L97.522 Non-pressure chronic ulcer of other part of left foot with fat layer exposed; T87.81 Dehiscence of amputation stump; T81.49XA Infection following a procedure, other surgical site, initial encounter; E11.69 Type 2 diabetes mellitus with other specified complication; M86.9 Osteomyelitis, unspecified; E11.51 Type 2 diabetes mellitus with diabetic peripheral angiopathy without gangrene; I11.0 Hypertensive heart disease with heart failure; I50.22 Chronic systolic (congestive) heart failure; E11.610 Type 2 diabetes mellitus with diabetic neuropathic arthropathy; B18.2 Chronic viral hepatitis C; E66.01 Morbid (severe) obesity due to excess calories; Z68.33 Body mass index [BMI] 33.0-33.9, adult; Z89.511 Acquired absence of right leg below knee; Z79.4 Long term (current) use of insulin; Z79.899 Other long term (current) drug therapy ==

== ENCOUNTER → 2021-01-31 | Outpatient (CLI) | payer OTHER | LOC: OPSV 12:45 | DX: S91.302A Unspecified open wound, left foot, initial encounter (principal); B96.1 Klebsiella pneumoniae [K. pneumoniae] as the cause of diseases classified elsewhere | CPT/HCPCS: 96372; J1335 ==

== ENCOUNTER → 2021-02-01 | Outpatient (CLI) | payer OTHER | LOC: OPSV 14:00 | DX: L03.90 Cellulitis, unspecified (principal); B96.20 Unspecified Escherichia coli [E. coli] as the cause of diseases classified elsewhere; B96.4 Proteus (mirabilis) (morganii) as the cause of diseases classified elsewhere | CPT/HCPCS: 96372; J1335 ==

== ENCOUNTER → 2021-02-05 | Outpatient (CLI) | payer OTHER ==
[2021-02-05 13:55] LABS: WHITE BLOOD COUNT 6.1 K/UL (4.5-11.0)
[2021-02-05 14:27] LABS: BUN/CREATININE RATIO 22 (0-10)
== END ==
LOC: OPSV 13:21
PROVIDERS: Internal Medicine Infectious Disease
DX: L03.90 Cellulitis, unspecified (principal); M86.9 Osteomyelitis, unspecified; B96.20 Unspecified Escherichia coli [E. coli] as the cause of diseases classified elsewhere; B96.4 Proteus (mirabilis) (morganii) as the cause of diseases classified elsewhere
CPT/HCPCS: 80048; 85025; 86140; 96372; J1335

== ENCOUNTER → 2021-02-05 | Outpatient (CLI) | payer OTHER ==
[~2021-02-05] MED LIST changes: +AMLODIPINE BESYL5 MG PO; +GVOKE HYPO1 MG/0.21 SQ
== END ==
LOC: WCC 08:54
DX: E11.621 Type 2 diabetes mellitus with foot ulcer (principal); L97.422 Non-pressure chronic ulcer of left heel and midfoot with fat layer exposed; L97.522 Non-pressure chronic ulcer of other part of left foot with fat layer exposed; T81.30XA Disruption of wound, unspecified, initial encounter; S91.109A Unspecified open wound of unspecified toe(s) without damage to nail, initial encounter; I11.0 Hypertensive heart disease with heart failure; I50.22 Chronic systolic (congestive) heart failure; E11.610 Type 2 diabetes mellitus with diabetic neuropathic arthropathy; E66.01 Morbid (severe) obesity due to excess calories; B18.2 Chronic viral hepatitis C; M86.9 Osteomyelitis, unspecified; Z89.511 Acquired absence of right leg below knee; Z79.4 Long term (current) use of insulin; X58.XXXA Exposure to other specified factors, initial encounter; Y92.9 Unspecified place or not applicable

== ENCOUNTER → 2021-02-06 | Outpatient (CLI) | payer OTHER ==
[~2021-02-06] VITALS: Ht 175.3 cm; Wt 63.5 kg
== END ==
LOC: OPSV 14:00
DX: B96.1 Klebsiella pneumoniae [K. pneumoniae] as the cause of diseases classified elsewhere (principal)
CPT/HCPCS: 96372; J1335

== ENCOUNTER 2021-04-30 17:43 | Inpatient (IN) | payer OTHER ==
[~2021-04-30] VITALS: Ht 172.7 cm; Wt 89.0 kg
[~2021-04-30 17:43] MED LIST changes: +GABAPENTIN600 MG PO; +LASIX20 MG PO; +LEVOFLOXACIN500 MG PO; +MIRALAX17 GM PO; +PROAIR HFA8.5 GM INH; +SYMBICORT 80-41 INHA INH; +invanz IM
[2021-04-30 19:23] LABS: HEMOGLOBIN 11.2 gm/dl (14.0-17.5); RED BLOOD COUNT 3.77 M/UL (4.20-5.50); WHITE BLOOD COUNT 5.9 K/UL (4.5-11.0)
[2021-04-30 19:45] LABS: BUN/CREATININE RATIO 36 (0-10)
[2021-05-01 04:27] LABS: WHITE BLOOD COUNT 5.8 K/UL (4.5-11.0)
[2021-05-01 04:29] LABS: HEMOGLOBIN 8.7 gm/dl (14.0-17.5)
[2021-05-01] MEDS ORDERED: GLUCAGON EMERGEN1 MG INJ (10:34)
[2021-05-01] MEDS ORDERED: FLOMAX 0.4 MG0.4 MG PO (10:35)
[2021-05-02 02:58] LABS: HEMOGLOBIN 9.5 gm/dl (14.0-17.5); RED BLOOD COUNT 3.14 M/UL (4.20-5.50); WHITE BLOOD COUNT 6.5 K/UL (4.5-11.0)
[2021-05-03 04:46] LABS: HEMOGLOBIN 9.1 gm/dl (14.0-17.5); RED BLOOD COUNT 3.06 M/UL (4.20-5.50); WHITE BLOOD COUNT 5.2 K/UL (4.5-11.0)
[2021-05-03 05:16] LABS: BUN/CREATININE RATIO 25 (0-10)
[2021-05-04 03:47] LABS: HEMOGLOBIN 10.1 gm/dl (14.0-17.5); WHITE BLOOD COUNT 5.7 K/UL (4.5-11.0)
[2021-05-04 04:04] LABS: RED BLOOD COUNT 3.44 M/UL (4.20-5.50)
[2021-05-04 04:10] LABS: BUN/CREATININE RATIO 26 (0-10)
[2021-05-04 11:17] LABS: BUN/CREATININE RATIO 26 (0-10)
[2021-05-05 04:21] LABS: HEMOGLOBIN 9.3 gm/dl (14.0-17.5); RED BLOOD COUNT 3.14 M/UL (4.20-5.50); WHITE BLOOD COUNT 6.2 K/UL (4.5-11.0)
[2021-05-05 04:51] LABS: BUN/CREATININE RATIO 27 (0-10)
[2021-05-06 04:22] LABS: HEMOGLOBIN 10.1 gm/dl (14.0-17.5); RED BLOOD COUNT 3.43 M/UL (4.20-5.50); WHITE BLOOD COUNT 6.1 K/UL (4.5-11.0)
[2021-05-06 04:36] LABS: BUN/CREATININE RATIO 32 (0-10)
[2021-05-07 04:56] LABS: HEMOGLOBIN 9.3 gm/dl (14.0-17.5); RED BLOOD COUNT 3.15 M/UL (4.20-5.50); WHITE BLOOD COUNT 5.8 K/UL (4.5-11.0)
[2021-05-07 05:19] LABS: BUN/CREATININE RATIO 28 (0-10)
[2021-05-09 04:00] LABS: HEMOGLOBIN 8.7 gm/dl (14.0-17.5); RED BLOOD COUNT 2.89 M/UL (4.20-5.50)
[2021-05-09 04:18] LABS: BUN/CREATININE RATIO 31 (0-10)
[2021-05-09 10:32] LABS: HEMOGLOBIN 8.9 gm/dl (14.0-17.5); RED BLOOD COUNT 2.97 M/UL (4.20-5.50); WHITE BLOOD COUNT 4.1 K/UL (4.5-11.0)
[2021-05-10 03:53] LABS: HEMOGLOBIN 8.9 gm/dl (14.0-17.5); RED BLOOD COUNT 2.95 M/UL (4.20-5.50)
[2021-05-10 04:02] LABS: BUN/CREATININE RATIO 30 (0-10); WHITE BLOOD COUNT 5.4 K/UL (4.5-11.0)
[2021-05-11 04:20] LABS: HEMOGLOBIN 7.8 gm/dl (14.0-17.5); RED BLOOD COUNT 2.66 M/UL (4.20-5.50); WHITE BLOOD COUNT 4.6 K/UL (4.5-11.0)
[2021-05-11 04:48] LABS: BUN/CREATININE RATIO 27 (0-10)
[2021-05-12 03:14] LABS: HEMOGLOBIN 7.9 gm/dl (14.0-17.5); RED BLOOD COUNT 2.61 M/UL (4.20-5.50); WHITE BLOOD COUNT 5.6 K/UL (4.5-11.0)
[2021-05-12 03:42] LABS: BUN/CREATININE RATIO 29 (0-10)
[2021-05-13 06:31] LABS: RED BLOOD COUNT 2.66 M/UL (4.20-5.50); WHITE BLOOD COUNT 5.6 K/UL (4.5-11.0)
--- NOTE | 2021-05-13 07:30 | NUR ---
PT UNCOMFORTABLE STATED HE HAD NOT VOIDED LAST PM. BLADDER SCANNED AND [address] OLGUIN NOTIFIED WITH NEW ORDERS TO ANCHOR A RAMIREZ AND GIVE PT SCHEDULED LASIX TO HELP WITH EDEMA AND FLUID.
--- NOTE | 2021-05-13 12:41 | NUR ---
18 FR RAMIREZ ANCHORED WITH 900CC OUT.
[2021-05-14 06:52] LABS: HEMOGLOBIN 7.9 gm/dl (14.0-17.5); RED BLOOD COUNT 2.61 M/UL (4.20-5.50); WHITE BLOOD COUNT 5.2 K/UL (4.5-11.0)
[2021-05-15 04:13] LABS: HEMOGLOBIN 8.3 gm/dl (14.0-17.5); RED BLOOD COUNT 2.73 M/UL (4.20-5.50); WHITE BLOOD COUNT 4.3 K/UL (4.5-11.0)
[2021-05-15 04:39] LABS: BUN/CREATININE RATIO 41 (0-10)
[2021-05-16 07:14] LABS: RED BLOOD COUNT 2.67 M/UL (4.20-5.50); WHITE BLOOD COUNT 3.7 K/UL (4.5-11.0)
[2021-05-16 07:33] LABS: BUN/CREATININE RATIO 32 (0-10)
[2021-05-17 07:20] LABS: HEMOGLOBIN 8.5 gm/dl (14.0-17.5); RED BLOOD COUNT 2.85 M/UL (4.20-5.50); WHITE BLOOD COUNT 4.3 K/UL (4.5-11.0)
[2021-05-17 07:42] LABS: BUN/CREATININE RATIO 27 (0-10)
[2021-05-18 04:02] LABS: HEMOGLOBIN 8.4 gm/dl (14.0-17.5); RED BLOOD COUNT 2.8 M/UL (4.20-5.50); WHITE BLOOD COUNT 5.2 K/UL (4.5-11.0)
[2021-05-18 04:33] LABS: BUN/CREATININE RATIO 29 (0-10)
[2021-05-18 09:17] LABS: ANTISTREPTOLYSIN O AB 32.7 IU/mL (0.0-200.0); COMPLEMENT C3, SERUM 122 mg/dL (82-167); COMPLEMENT C4, SERUM 12 mg/dL (12-38)
[2021-05-18 11:12] LABS: HBSAG SCREEN Negative (Negative); HEP B CORE AB, TOT Negative (Negative); HEP C VIRUS AB >11.0 (0.0-0.9)
[2021-05-18 17:12] LABS: ANTI-DSDNA ANTIBODIES 8 IU/mL (0-9)
[2021-05-19 03:43] LABS: HEMOGLOBIN 7.9 gm/dl (14.0-17.5); RED BLOOD COUNT 2.68 M/UL (4.20-5.50); WHITE BLOOD COUNT 4.2 K/UL (4.5-11.0)
[2021-05-19 04:07] LABS: BUN/CREATININE RATIO 34 (0-10)
[2021-05-19 15:12] LABS: ATYPICAL PANCA <1:20 titer (Neg:<1:20); CYTOPLASMIC (C-ANCA) <1:20 titer (Neg:<1:20); PERINUCLEAR (P-ANCA) <1:20 titer (Neg:<1:20)
--- NOTE | 2021-05-19 17:38 | NUR ---
REPEAT ACCUCHECK 95 AFTER 1 AMP OF D5
[2021-05-20 03:27] LABS: HEMOGLOBIN 7.9 gm/dl (14.0-17.5); RED BLOOD COUNT 2.59 M/UL (4.20-5.50)
[2021-05-20 03:31] LABS: WHITE BLOOD COUNT 5.6 K/UL (4.5-11.0)
[2021-05-20 03:49] LABS: BUN/CREATININE RATIO 38 (0-10)
[2021-05-20 15:11] LABS: ALBUMIN 3.1 g/dL (2.9-4.4); ALPHA-1-GLOBULIN 0.3 g/dL (0.0-0.4); ALPHA-2-GLOBULIN 0.8 g/dL (0.4-1.0); BETA GLOBULIN 0.8 g/dL (0.7-1.3); GAMMA GLOBULIN 1.4 g/dL (0.4-1.8); GLOBULIN, TOTAL 3.2 g/dL (2.2-3.9); IMMUNOGLOBULIN A, QN, SERUM 291 mg/dL (61-437); IMMUNOGLOBULIN G, QN, SERUM 1323 mg/dL (603-1613); IMMUNOGLOBULIN M, QN, SERUM 98 mg/dL (20-172); M-SPIKE 0.4 g/dL (Not Observed); PROTEIN, TOTAL, SERUM 6.3 g/dL (6.0-8.5)
[2021-05-21 06:19] LABS: HEMOGLOBIN 8.5 gm/dl (14.0-17.5); RED BLOOD COUNT 2.69 M/UL (4.20-5.50); WHITE BLOOD COUNT 4.1 K/UL (4.5-11.0)
[2021-05-22 06:35] LABS: RED BLOOD COUNT 2.65 M/UL (4.20-5.50); WHITE BLOOD COUNT 4.1 K/UL (4.5-11.0)
--- NOTE | 2021-05-22 18:47 | NUR ---
RECEIVED PATIENT FROM PACU. ASLEEP. AROUSES TO VERBAL STIMULI. SURGICAL DRESSING INTACT TO LEFT FOOT. WOUND VAC INTACT. NO DISTRESS NOTED. WCTM.
[2021-05-23 06:04] LABS: RED BLOOD COUNT 2.67 M/UL (4.20-5.50); WHITE BLOOD COUNT 3.4 K/UL (4.5-11.0)
--- NOTE | 2021-05-23 09:58 | NUR ---
0800 NOTIFIED THAT PATIENTS BS IS 436. ORDER RECEIVED TO ADMINISTERED SCHEDULED DOSE AND SLIDING SCALE DOSE NOW AND RECHECK IN 1.5HR. REPEAT BS IS 283 AND PATIENT IS SCHEDULED TO RECEIVE 10U HUMALOG AT 11AM AND SLIDING SCALE AT 12PM. NO DISTRESS NOTED. PATIENT [id number].
[2021-05-24] MEDS ORDERED: VANCOMYCIN1.25 GM/12 IV (13:47)
[2021-05-24] MEDS ORDERED: POLYETHYLENE GL17 GM PO (13:47)
[2021-05-24] MEDS ORDERED: MEROPENEM500 MG IV (13:47)
[2021-05-24] MEDS ORDERED: STIMULANT LAXA1 EACH PO (13:47)
[2021-05-24] MEDS ORDERED: BUMETANIDE1 MG PO (13:47)
== END 2021-05-24 20:13 | DRG 853 ==
LOC: ER1 17:43 → PROG CARE 22:15 → MED SURG 4 22:15 → CDU 22:15 → PROG CARE 05-02 00:50 → MED SURG 4 05-06 13:07
PROVIDERS: Emergency Medicine; Family Medicine; Internal Medicine; Internal Medicine Nephrology; ADMIT Internal Medicine
PROC: 3E03329 Introduction of Other Anti-infective into Peripheral Vein, Percutaneous Approach (ICD-10-PCS; principal; 2021-04-30)
PROC: 3E043XZ Introduction of Vasopressor into Central Vein, Percutaneous Approach (ICD-10-PCS; 2021-05-01)
PROC: 0QBP0ZZ Excision of Left Metatarsal, Open Approach (ICD-10-PCS; 2021-05-03)
PROC: 0QBP0ZZ Excision of Left Metatarsal, Open Approach (ICD-10-PCS; 2021-05-03)
PROC: 0QBP0ZZ Excision of Left Metatarsal, Open Approach (ICD-10-PCS; 2021-05-03)
PROC: 0QBP0ZZ Excision of Left Metatarsal, Open Approach (ICD-10-PCS; 2021-05-03)
PROC: 02HV33Z Insertion of Infusion Device into Superior Vena Cava, Percutaneous Approach (ICD-10-PCS; 2021-05-06)
PROC: B24BZZZ Ultrasonography of Heart with Aorta (ICD-10-PCS; 2021-05-13)
PROC: 0QUP0KZ Supplement Left Metatarsal with Nonautologous Tissue Substitute, Open Approach (ICD-10-PCS; 2021-05-22)
PROC: 0QBP0ZZ Excision of Left Metatarsal, Open Approach (ICD-10-PCS; 2021-05-22)
DX: A41.02 Sepsis due to Methicillin resistant Staphylococcus aureus (principal); R65.21 Severe sepsis with septic shock; Z20.822 Contact with and (suspected) exposure to COVID-19; I50.33 Acute on chronic diastolic (congestive) heart failure; N17.9 Acute kidney failure, unspecified; F11.20 Opioid dependence, uncomplicated; M86.672 Other chronic osteomyelitis, left ankle and foot; E11.52 Type 2 diabetes mellitus with diabetic peripheral angiopathy with gangrene; I96 Gangrene, not elsewhere classified; M87.9 Osteonecrosis, unspecified; A41.51 Sepsis due to Escherichia coli [E. coli]; A41.59 Other Gram-negative sepsis; E11.621 Type 2 diabetes mellitus with foot ulcer; F19.10 Other psychoactive substance abuse, uncomplicated; E11.69 Type 2 diabetes mellitus with other specified complication; E78.5 Hyperlipidemia, unspecified; D64.9 Anemia, unspecified; E88.09 Other disorders of plasma-protein metabolism, not elsewhere classified; I11.0 Hypertensive heart disease with heart failure; D50.9 Iron deficiency anemia, unspecified; B96.89 Other specified bacterial agents as the cause of diseases classified elsewhere; K64.8 Other hemorrhoids; B96.1 Klebsiella pneumoniae [K. pneumoniae] as the cause of diseases classified elsewhere; M54.9 Dorsalgia, unspecified; E11.40 Type 2 diabetes mellitus with diabetic neuropathy, unspecified; L89.152 Pressure ulcer of sacral region, stage 2; E87.5 Hyperkalemia; E11.65 Type 2 diabetes mellitus with hyperglycemia; Z89.511 Acquired absence of right leg below knee; Z91.14 Patient's other noncompliance with medication regimen; Z82.49 Family history of ischemic heart disease and other diseases of the circulatory system; Z83.3 Family history of diabetes mellitus; Z79.4 Long term (current) use of insulin; Z79.899 Other long term (current) drug therapy
CPT/HCPCS: ECHO; 36415; 36600; 71045; 73630; 73718; 76000; 76705; 80048; 80053; 80202; 81001; 82436; 82533; 82550; 82565; 82570; 82607; 82746; 82784; 82803; 82962; 83036; 83520; 83540; 83550; 83605; 83735; 83880; 83883; 83935; 84132; 84133; 84155; 84156; 84165; 84300; 84439; 84443; 84550; 85025; 85027; 85610; 85652; 85730; 86038; 86060; 86140; 86160; 86162; 86225; 86256; 86334; 86704; 86706; 86708; 86803; 87040; 87070; 87077; 87186; 87205; 87340; 89050; 93005; 93306; 93926; 93970; 96374; 96375; 96376; 97110; 97110-GP-CQ; 97161; 97164; 97166; 97530; 97530-GP-CQ; 99284; C1751; J0610; J0690; J1100; J1120; J1205; J1580; J1644; J1650; J1756; J1885; J1940; J2001; J2185; J2250; J2270; J2405; J2543; J2704; J2795; J3010; J3370; J7030; J7050; J7070; J7120; P9047; Q4133; U0002